=== PATIENT | male | born 1970 | race Caucasian/White ===

== ENCOUNTER 2017-01-28 09:53 | Day surgery (SDC) | payer BC ==
[~2017-01-28 09:53] MED LIST: Lactated Ringers 1,000 ML IV SCH; Lidocaine 1% 2 ML SDV ONE; Lidocaine 1%/Sod Bicarbonate in NS 8.4% 1 ML Syringe IV PRN; Propofol 200 MG/20 ML SDV ONE; Sodium Chloride 0.9% 10 ML Syringe FLUSH PRN
--- NOTE | 2017-01-28 10:36 | PCM.PREANE ---
Preanesthetic Assessment - Anesthesia/Transfusion/Family Hx Anesthesia History: No Prior Anesthesia Family History of Anesthesia Reaction: No Transfusion History: No Prior Transfusion(s) - Review of Systems General: No Symptoms Pulmonary: No Symptoms Cardiovascular: No Symptoms Gastrointestinal: No symptoms Neurological: No Symptoms Other: Reports: None - Physical Assessment NPO Status Date: 01/27/17 NPO Status Time: 00:00 Pulse: 83 O2 Sat by Pulse Oximetry: 97 Respiratory Rate: 14 Blood Pressure: 126/74 Temperature: 36.8 C Height: 1.8 m Weight: 149.685 kg ASA Class: 3 Mental Status: Alert & Oriented x3 Airway Class: Mallampati = 1 Dentition: Reports: Edentulous Thyro-Mental Finger Breadths: 3 Mouth Opening Finger Breadths: 5 ROM/Head Extension: Full Lungs: Clear to auscultation, Normal respiratory effort Cardiovascular: Regular Rate, Regular Rhythm - Lab Values: Labs reviewed - Allergies Allergies/Adverse Reactions: Allergies Allergy/AdvReac Type Severity Reaction Status Date / Time morphine Allergy Swelling Verified 02/11/16 13:05 pollen extracts Allergy Cannot Verified 01/27/17 12:48 Remember tramadol Allergy Cannot Verified 01/27/17 12:48 Remember - Blood Blood Available: No - Anesthesia Plan Beta Elizabeth: Carvedilol (took last night, will take tonight) - Acknowledgements Anesthesia Type Planned: MAC Pt an Appropriate Candidate for the Planned Anesthesia: Yes Alternatives and Risks of Anesthesia Discussed w Pt/Guardian: Yes Pt/Guardian Understands and Agrees with Anesthesia Plan: Yes PreAnesthesia Questionnaire - Past Health History Medical/Surgical History: Denies Medical/Surgical History (except [place] disease history 15 years ago) HEENT History: Reports: None Other HEENT History: dentures Cardiovascular History: Reports: Hypertension Respiratory History: Reports: Asthma, Sleep apnea Gastrointestinal History: Reports: GERD, Helicobacter pylori, Other (see below) Other Gastrointestinal History: abdominal pain, dysphagia, epigastric pain, nausea/vomiting Genitourinary History: Reports: None INTERVENTIONAL NEURORADIOLOGIST History: Reports: None Musculoskeletal History: Reports: None Neurological History: Reports: Migraines Psychiatric History: Reports: None Endocrine/Metabolic History: Reports: Obesity/BMI 30+ Hematologic History: Reports: Anemia Immunologic History: Reports: None Oncologic (Cancer) History: Reports: None Dermatologic History: Reports: None - Infectious Disease History Infectious Disease History: Reports: Other (see below) Other Infectious Disease History: lyme disease - Past Surgical History Head Surgeries/Procedures: Reports: None HEENT Surgical History: Reports: Oral surgery - SUBSTANCE USE Smoking Status *Q: Current Every Day Smoker Tobacco Use Within Last Twelve Months: Cigarettes Recreational Drug Use History: No - HOME MEDS Home Medications: Home Meds Aspirin [Claudia Chewable] 81 mg PO DAILY 02/11/16 [History] SUMAtriptan Succinate [Imitrex] 100 mg PO DAILY PRN 02/11/16 [History] Carvedilol [Carvedilol] 25 mg PO DAILY 01/27/17 [History] Cholecalciferol (Vitamin D3) [Vitamin D3] 1,000 unit PO DAILY 01/27/17 [History] Garlic 1 tab PO DAILY 01/27/17 [History] Lisinopril 40 mg PO DAILY 01/27/17 [History] Omeprazole Magnesium [Prilosec Otc] 20 mg PO DAILY 01/27/17 [History] Ondansetron [Ondansetron ODT] 4 mg PO TID PRN 01/27/17 [History] - CURRENT (IN HOUSE) MEDS Current Meds: Current Medications Lactated Ringer's (Ringers, Lactated) 1,000 mls @ 125 mls/hr IV ASDIRECTED CLAUDE Lidocaine/Sodium Bicarbonate (Buffered Lidocaine 1% In Ns 8.4%) 0.25 ml IV ONETIME PRN PRN Reason: Prior to IV Start Sodium Chloride (Saline Flush) 10 ml FLUSH ASDIRECTED PRN PRN Reason: Keep Vein Open Discontinued Medications Lidocaine HCl (Lidocaine 1%) Confirm Administered Dose 6 ml .ROUTE .STK-MED ONE Stop: 01/28/17 07:51 Propofol (Diprivan 20 Ml) Confirm Administered Dose 200 mg .ROUTE .STK-MED ONE Stop: 01/28/17 07:51 Preanesthetic Assessment - PHYSICAL ASSESSMENT Height: 1.8 m Weight: 149.685 kg - ALLERGIES Allergies/Adverse Reactions: Allergies Allergy/AdvReac Type Severity Reaction Status Date / Time morphine Allergy Swelling Verified 02/11/16 13:05 pollen extracts Allergy Cannot Verified 01/27/17 12:48 Remember tramadol Allergy Cannot Verified 01/27/17 12:48 Remember
--- NOTE | 2017-01-28 11:32 | PCM.SN ---
- Free Text/Narrative Note: After the preanesthetic record was signed, the patient informed the anesthesia provider that he uses cannabis on a daily bases to treat the nausea and vomiting he has been experiencing which is leading to have the EGD at the hospital. He informed me that without daily ingesting the cannabis, he has nausea and vomiting. I agreed to proceed with the scheduled procedure and anesthetic, and thanked him for being honest with his drug use history.
--- NOTE | 2017-01-28 12:17 | PCM48HPAN ---
Post Anesthesia Note - EVALUATION WITHIN 48HRS OF ANESTHETIC Vital Signs in Normal Range: Yes Patient Participated in Evaluation: Yes Respiratory Function Stable: Yes Airway Patent: Yes Cardiovascular Function Stable: Yes Hydration Status Stable: Yes Pain Control Satisfactory: Yes Nausea and Vomiting Control Satisfactory: Yes Mental Status Recovered: Yes
--- NOTE | 2017-01-28 12:18 | PCM.OPNOTE ---
- General Post-Op/Procedure Note Date of Surgery/Procedure: 01/28/17 Operative Procedure(s): EGD with biopsies of the antrum, and prox and distal esophagus using cold forceps Findings: normal EGD Pre Op Diagnosis: GERD, Dysphagia, + H. Pylori Post-Op Diagnosis: normal EGD Anesthesia Technique: MAC, Moderate sedation Primary Surgeon: Darin Sanchez Pathology: antral biopsies, as well as proximal and distal esophageal biopsies EBL in mLs: 0 Complications: None Condition: Good Free Text/Narrative:: After adequate IV sedation and analgesia was obtained the patient was placed on his left side. Through a bite-block lubricated upper endoscope was inserted into the esophagus and advanced to the stomach without difficulty. Air was given here I entered the first and second parts of the duodenum, which were endoscopically normal with no mass lesions or inflammatory changes seen. There were no ulcers. The antrum was unremarkable as well with no erosions or ulcers. I took two random biopsies of the antrum with cold forceps for histologic review. In the retroflexed view there was no hiatal hernia. The fundus and cardiac regions were normal. The body of the stomach was unremarkable with normal folds and no ulcers. The scope was withdrawn to the GE junction, which was normal. I took two random biopsies of this area for review. The body of the esophagus was unremarkable and within the proximal esophagus I took two random biopsies because of his history of dysphagia. [employer] Drawer photographs were taken for the patient and for the record. There were no procedural complications.
[2017-01-28] MEDS ORDERED: Propofol 200 MG/20 ML SDV ONE (12:20)
[2017-01-28 12:21] VITALS: BP 132/86
== END 2017-01-28 12:31 | disposition home or self-care (01) ==
LOC: JD.SDS 09:53
PROVIDERS: ATTEND Surgery
PROC: 0DB48ZX Excision of Esophagogastric Junction, Via Natural or Artificial Opening Endoscopic, Diagnostic (ICD-10-PCS; principal; 2017-01-28)
DX: K22.70 Barrett's esophagus without dysplasia (principal); J45.909 Unspecified asthma, uncomplicated; I10 Essential (primary) hypertension; K21.9 Gastro-esophageal reflux disease without esophagitis; I16.9 Hypertensive crisis, unspecified; E66.01 Morbid (severe) obesity due to excess calories; G47.33 Obstructive sleep apnea (adult) (pediatric); F17.210 Nicotine dependence, cigarettes, uncomplicated; Z88.5 Allergy status to narcotic agent; Z88.6 Allergy status to analgesic agent; Z91.048 Other nonmedicinal substance allergy status; Z79.82 Long term (current) use of aspirin; Z79.899 Other long term (current) drug therapy; Z86.19 Personal history of other infectious and parasitic diseases; Z68.42 Body mass index [BMI] 45.0-49.9, adult
CPT/HCPCS: 43239; 88305; J7120; J2704

== ENCOUNTER 2017-04-10 08:26 | Emergency (ER) | payer BC ==
[2017-04-10] MEDS ORDERED: Alum Hydrox/Mag Hydrox/Simeth 30 ML, Lidocaine 2% 15 ML PO ONE ×2 (08:39)
[2017-04-10] MEDS ORDERED: Ondansetron 4 MG/2 ML SDV IVPUSH ONE (08:39)
[2017-04-10] MEDS ORDERED: Pantoprazole 40 MG Vial IVPUSH ONE (08:39)
--- NOTE | 2017-04-10 08:43 | EDM.PDOC ---
ED HPI GENERAL MEDICAL PROBLEM - General Chief Complaint: Respiratory Problem Stated Complaint: SHORTNESS OF BREATH Time Seen by Provider: 04/10/17 08:28 - History of Present Illness INITIAL COMMENTS - FREE TEXT/NARRATIVE: 46-year-old male presents emergency room with abdominal pain and breathing difficulties. This is been going on for the last 4-5 days progressively getting worse. Patient has been unable to keep his omeprazole down secondary to burning in his stomach and throat that causes shortness of breath and a severe cough. The patient has had some vomiting. He has not vomited any blood. At times he is a hard time catching his breath when the pain is at its most severe pain he describes a numbness and discomfort in his right arm and at times has difficulty moving his other arm. No lower extremity weakness. The patient has been unable to keep any fluids or food down for the last 3 days and it was decreased before this. Right Chest Pain Score (Numeric/FACES): 8 - Related Data Allergies Allergy/AdvReac Type Severity Reaction Status Date / Time morphine Allergy Swelling Verified 04/10/17 08:34 pollen extracts Allergy Cannot Verified 04/10/17 08:34 Remember tramadol Allergy Cannot Verified 04/10/17 08:34 Remember Home Meds: Home Meds Aspirin [Claudia Chewable Aspirin] 81 mg PO DAILY 02/11/16 [History] SUMAtriptan Succinate [Imitrex] 100 mg PO DAILY PRN 02/11/16 [History] Carvedilol 25 mg PO DAILY 01/27/17 [History] Cholecalciferol (Vitamin D3) [Vitamin D3] 1,000 unit PO DAILY 01/27/17 [History] Garlic 1 tab PO DAILY 01/27/17 [History] Lisinopril 40 mg PO DAILY 01/27/17 [History] Omeprazole Magnesium [Prilosec Otc] 20 mg PO DAILY 01/27/17 [History] Ondansetron [Ondansetron ODT] 4 mg PO TID PRN 01/27/17 [History] Famotidine [Pepcid] 20 mg PO BID #60 tablet 04/10/17 [Rx] Ondansetron [Zofran ODT] 4 mg PO Q4H PRN #10 tab.dis 04/10/17 [Rx] Sucralfate [Carafate] 1 gm PO QIDACANDBED #60 tablet 04/10/17 [Rx] Past Medical History - Past Health History Medical/Surgical History: Denies Medical/Surgical History (except [place] disease history 15 years ago) HEENT History: Reports: None Other HEENT History: dentures Cardiovascular History: Reports: Hypertension Respiratory History: Reports: Asthma, Sleep Apnea Gastrointestinal History: Reports: GERD, Helicobacter Pylori, Other (See Below) Other Gastrointestinal History: abdominal pain, dysphagia, epigastric pain, nausea/vomiting Genitourinary History: Reports: None DIRECTOR PHARMACOLOGY History: Reports: None Musculoskeletal History: Reports: None Neurological History: Reports: Migraines Psychiatric History: Reports: None Endocrine/Metabolic History: Reports: Obesity/BMI 30+ Hematologic History: Reports: Anemia Immunologic History: Reports: None Oncologic (Cancer) History: Reports: None Dermatologic History: Reports: None - Infectious Disease History Infectious Disease History: Reports: Other (See Below) Other Infectious Disease History: lyme disease - Past Surgical History HEENT Surgical History: Reports: Oral Surgery Social & Family History - Family History Family Medical History: Noncontributory - Tobacco Use Smoking Status *Q: Current Every Day Smoker Years of Tobacco use: 20 Packs/Tins Daily: 0.7 - Recreational Drug Use Recreational Drug Use: No ED ROS GENERAL - Review of Systems Review Of Systems: See Below Constitutional: Reports: Weakness, Fatigue, Decreased Appetite. Denies: No Symptoms, Fever, Chills HEENT: Reports: No Symptoms Respiratory: Reports: Shortness of Breath, Cough. Denies: Wheezing, Pleuritic Chest Pain, Sputum Cardiovascular: Reports: Chest Pain (Burning sensation in the middle of his chest with some radiation) Endocrine: Reports: No Symptoms GI/Abdominal: Reports: Abdominal Pain, Nausea, Vomiting. Denies: Constipation, Diarrhea, Hematemesis, Hematochezia : Reports: No Symptoms Musculoskeletal: Reports: No Symptoms Skin: Reports: No Symptoms Neurological: Reports: No Symptoms ED EXAM, GENERAL - Physical Exam Exam: See Below Exam Limited By: No Limitations General Appearance: Alert, Mild Distress (From frequent attempts to vomit and discomfort) Head: Atraumatic, Normocephalic Neck: Normal Inspection, Supple, Non-Tender, Full Range of Motion Respiratory/Chest: No Respiratory Distress, Lungs Clear, Normal Breath Sounds Cardiovascular: Regular Rate, Rhythm, No Edema, No Murmur, Tachycardia GI/Abdominal: Normal Bowel Sounds, Soft, Other (Significant epigastric and left upper quadrant discomfort with palpation no rebound or guarding noted patient is obese this limits the exam to some degree) Back Exam: Normal Inspection. No: CVA Tenderness (L), CVA Tenderness (R) Course - Vital Signs Last Recorded V/S: Last Vital Signs Temp 36.8 C 04/10/17 08:30 Pulse 95 04/10/17 09:51 Resp 16 04/10/17 08:30 BP 116/78 04/10/17 09:51 Pulse Ox 99 04/10/17 08:30 - Orders/Labs/Meds Orders: Active Orders 24 hr Category Date Time Status EKG Documentation Completion [RC] STAT Care 04/10/17 08:40 Active Labs: Laboratory Tests 04/10/17 04/10/17 Range/Units 09:08 09:08 WBC 13.75 H (4.23-9.07) K/mm3 RBC 5.44 (4.63-6.08) M/mm3 Hgb 15.9 (13.7-17.5) gm/L Hct 46.7 (40.1-51.0) % MCV 85.8 (79.0-92.2) fl MCH 29.2 (25.7-32.2) pg MCHC 34.0 (32.2-35.5) g/dl RDW Std Deviation 44.0 H (35.1-43.9) fL Plt Count 315 (163-337) K/mm3 MPV 10.5 (9.4-12.3) fl Neutrophils % (Manual) 81 H (40-60) % Band Neutrophils % 1 (0-10) % Lymphocytes % (Manual) 12 L (20-40) % Atypical Lymphs % 0 % Monocytes % (Manual) 3 (2-10) % Eosinophils % (Manual) 2 (0.8-7.0) % Basophils % (Manual) 1 (0.2-1.2) Platelet Estimate Adequate RBC Morph Comment Normal Sodium 138 (136-145) mEq/L Potassium 3.8 (3.5-5.1) mEq/L Chloride 104 (98-107) mEq/L Carbon Dioxide 20 L (21-32) mEq/L Anion Gap 17.8 H (5-15) BUN 10 (7-18) mg/dL Creatinine 1.0 (0.7-1.3) mg/dL Est Cr Clr Drug Dosing 127.61 mL/min Estimated GFR (MDRD) > 60 (>60) mL/min BUN/Creatinine Ratio 10.0 L (14-18) Glucose 163 H (74-106) mg/dL Calcium 9.1 (8.5-10.1) mg/dL Total Bilirubin 0.8 (0.2-1.0) mg/dL AST 15 (15-37) U/L ALT 34 (16-63) U/L Alkaline Phosphatase 88 (46-116) U/L Troponin I < 0.017 (0.00-0.056) ng/mL Total Protein 7.8 (6.4-8.2) g/dl Albumin 3.9 (3.4-5.0) g/dl Globulin 3.9 gm/dL Albumin/Globulin Ratio 1.0 (1-2) Lipase 173 (73-393) U/L Meds: Medications Discontinued Medications Generic Name Dose Route Start Last Admin Trade Name Robyq PRN Reason Stop Dose Admin Al Hydroxide/Mg Hydroxide 30 0 ml 04/10/17 08:39 04/10/17 09:07 ml/ Lidocaine HCl 15 ml PO 04/10/17 08:40 45 ml ONETIME ONE Administration Lactated Ringer's Confirm 04/10/17 08:52 04/10/17 09:06 Ringers, Lactated Administered 04/10/17 08:53 Not Given Dose 1,000 mls @ as directed .ROUTE .STK-MED ONE Lactated Ringer's Confirm 04/10/17 08:54 04/10/17 09:06 Ringers, Lactated Administered 04/10/17 08:55 Not Given Dose 1,000 mls @ as directed .ROUTE .STK-MED ONE Lactated Ringer's 1,000 mls @ 999 mls/hr 04/10/17 09:05 04/10/17 08:55 Ringers, Lactated IV 04/10/17 10:05 999 mls/hr .BOLUS ONE Administration Ondansetron HCl 4 mg 04/10/17 08:39 04/10/17 08:55 Zofran IVPUSH 04/10/17 08:40 4 mg ONETIME ONE Administration Pantoprazole Sodium 40 mg 04/10/17 08:39 04/10/17 08:56 Protonix Iv IVPUSH 04/10/17 08:40 40 mg ONETIME ONE Administration Sucralfate 1 gm 04/10/17 09:30 04/10/17 09:37 Carafate PO 04/10/17 09:31 1 gm ONETIME ONE Administration - Re-Assessments/Exams Free Text/Narrative Re-Assessment/Exam: 04/10/17 09:29 Labs and x-ray ordered as well as an EKG which does not show any acute changes chest x-ray is unrevealing no free air diaphragm labs pending the patient had good control his nausea with Zofran this was followed up with the GI cocktail and he had significant relief after this. He feels much better he is breathing much easier. He'll be given dose of Carafate 04/10/17 10:06 Patient has had further improvement after the Carafate. Patient states he is 100 % back to normal. Labs reviewed white count is up a little bit no bandemia. Chemistries fairly normal troponin negative chest x-ray normal no free air in the diaphragm. Patient be discharged to continue his omeprazole once daily was started on Pepcid and Carafate and have him followup in the clinic. Departure - Departure Time of Disposition: 10:08 Disposition: Home, Self-Care 01 Clinical Impression: Gastroesophageal reflux disease Clinical Impression: (Ruled Out): Congestive heart failure - Discharge Information Forms: ED Department Discharge Additional Instructions: return to the emergency room with any questions or problems. You have been started on 3 medications and you should continue your Prilosec. He was started on Carafate 1 g before each meal breakfast lunch and supper and at bedtime. Take your other medications one hour before or 2 hours after using the Carafate. You have been started on Pepcid 20 mg twice daily. You've been started on Zofran. This is for nausea and vomiting. Use only as needed. Follow up in the clinic on Thursday or Thursday of next week. - My Orders Last 24 Hours: My Active Orders 04/10/17 08:40 EKG Documentation Completion [RC] STAT - Assessment/Plan Last 24 Hours: My Active Orders 04/10/17 08:40 EKG Documentation Completion [RC] STAT
[2017-04-10] MEDS ORDERED: Lactated Ringers 1,000 ML ONE ×2 (08:52→08:54)
--- NOTE | 2017-04-10 09:02 | CR ---
Chest: Portable view of the chest was obtained. Comparison: Previous chest x-ray of 02/11/16. Heart size and mediastinum are within normal limits for portable technique. Lungs are clear. Bony structures are grossly intact. Impression: 1. Nothing acute is identified on portable chest x-ray. Diagnostic code #1
[2017-04-10] MEDS ORDERED: Lactated Ringers 1,000 ML IV ONE (09:05)
[2017-04-10] MEDS ORDERED: Sucralfate Suspension 1 GM/10 ML Cup PO ONE (09:30)
[2017-04-10 09:52] VITALS: BP 116/78
== END 2017-04-10 10:21 | disposition home or self-care (01) ==
LOC: JD.ED 08:26
DX: K21.9 Gastro-esophageal reflux disease without esophagitis (principal); I10 Essential (primary) hypertension; J45.909 Unspecified asthma, uncomplicated; F17.210 Nicotine dependence, cigarettes, uncomplicated; G43.909 Migraine, unspecified, not intractable, without status migrainosus; E66.9 Obesity, unspecified; Z88.5 Allergy status to narcotic agent; Z79.82 Long term (current) use of aspirin; Z79.899 Other long term (current) drug therapy; Z86.2 Personal history of diseases of the blood and blood-forming organs and certain disorders involving the immune mechanism
CPT/HCPCS: 36415; 71010; 80053; 83690; 84484; 85025; 93005; 96361; 96374; 96375; 99285; A9270; C9113; J2405; J7120; 99284

== ENCOUNTER 2018-05-08 11:57 | Emergency (ER) | payer SELFPAY ==
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
[2018-05-08] MEDS ORDERED: Sodium Chloride 0.9% 1,000 ML IV ONE (13:22)
[2018-05-08] MEDS ORDERED: Ondansetron 4 MG/2 ML SDV IVPUSH ONE (13:22)
[2018-05-08] MEDS ORDERED: Ketorolac 30 MG/ML SDV IVPUSH ONE (13:22)
[2018-05-08 16:17] VITALS: BP 165/82
== END 2018-05-08 16:15 | disposition home or self-care (01) ==
LOC: JD.ED 11:57 → EEVIPCON 11:57 → JD.ED 16:15
DX: G44.209 Tension-type headache, unspecified, not intractable (principal); I10 Essential (primary) hypertension; J45.909 Unspecified asthma, uncomplicated; K21.9 Gastro-esophageal reflux disease without esophagitis; F17.210 Nicotine dependence, cigarettes, uncomplicated; Z88.5 Allergy status to narcotic agent; Z88.8 Allergy status to other drugs, medicaments and biological substances; Z79.899 Other long term (current) drug therapy; Z79.82 Long term (current) use of aspirin
CPT/HCPCS: 36415; 80053; 80306; 81001; 85025; 86677; 96361; 96374; 96375; 99284; J1885; J2405; J7040

== ENCOUNTER 2019-12-20 19:57 | Emergency (ER) | payer BC, OTHER ==
[2019-12-20] MEDS ORDERED: Ketorolac 30 MG/ML SDV IVPUSH ONE (20:38)
[2019-12-20] MEDS ORDERED: Ondansetron 4 MG/2 ML SDV IVPUSH ONE (20:38)
[2019-12-20] MEDS ORDERED: Sodium Chloride 0.9% 10 ML Syringe FLUSH PRN (20:39)
[2019-12-20] MEDS ORDERED: Metoprolol Tartrate 5 MG/5 ML SDV IVPUSH ONE (20:39)
--- NOTE | 2019-12-20 20:43 | EDM.PDOC ---
ED HPI GENERAL MEDICAL PROBLEM - General Chief Complaint: Headache Stated Complaint: DIZZY HEADACHE Time Seen by Provider: 12/20/19 20:19 Source of Information: Reports: Patient History Limitations: Reports: No Limitations - History of Present Illness INITIAL COMMENTS - FREE TEXT/NARRATIVE: Patient is a 49-year-old male who presents with complaints of headache, orthopnea, and lower extremity edema. Patient states he has had a headache for about the last month, however today it is worse. He describes the pain as a general pressure like somebody hit him in the head. Over the last week he has been having worsening lower extremity edema that does not resolve with elevating his extremities. He also complains of shortness of breath when lying flat. Patient states that he has had elevated blood pressures in the past and was prescribed lisinopril. He states that he ran out of these medications a couple months back and that his blood pressures been slowly increasing. Denies a history of congestive heart failure. Denies a history of migraines. Frontal Headache Pain Score (Numeric/FACES): 8 - Related Data Allergies Allergy/AdvReac Type Severity Reaction Status Date / Time morphine Allergy Swelling Verified 12/20/19 20:11 pollen extracts Allergy Cannot Verified 12/20/19 20:11 Remember tramadol Allergy Cannot Verified 12/20/19 20:11 Remember Home Meds: Home Meds . [No Known Home Meds] 12/20/19 [History] Past Medical History - Past Health History Medical/Surgical History: Denies Medical/Surgical History HEENT History: Reports: None Other HEENT History: dentures Cardiovascular History: Reports: Hypertension Respiratory History: Reports: Asthma, Sleep Apnea Gastrointestinal History: Reports: GERD, Helicobacter Pylori Other Gastrointestinal History: abdominal pain, dysphagia, epigastric pain, nausea/vomiting Genitourinary History: Reports: None CTO History: Reports: None Musculoskeletal History: Reports: None Neurological History: Reports: Migraines Psychiatric History: Reports: None Endocrine/Metabolic History: Reports: Obesity/BMI 30+ Hematologic History: Reports: Anemia Immunologic History: Reports: None Oncologic (Cancer) History: Reports: None Dermatologic History: Reports: None - Infectious Disease History Infectious Disease History: Reports: Other (See Below) Other Infectious Disease History: lyme disease - Past Surgical History Head Surgeries/Procedures: Reports: None HEENT Surgical History: Reports: Oral Surgery Social & Family History - Family History Family Medical History: Noncontributory - Tobacco Use Smoking Status *Q: Former Smoker Used Tobacco, but Quit: Yes Month/Year Tobacco Last Used: 2019 - Caffeine Use Caffeine Use: Reports: None - Recreational Drug Use Recreational Drug Use: No ED ROS GENERAL - Review of Systems Review Of Systems: See Below Constitutional: Reports: No Symptoms HEENT: Reports: No Symptoms Respiratory: Reports: Shortness of Breath Cardiovascular: Reports: Edema, Orthopnea. Denies: Chest Pain, Dyspnea on Exertion, Palpitations Endocrine: Reports: No Symptoms GI/Abdominal: Reports: No Symptoms : Reports: No Symptoms Musculoskeletal: Reports: No Symptoms Skin: Reports: No Symptoms Neurological: Reports: Headache Psychiatric: Reports: No Symptoms Hematologic/Lymphatic: Reports: No Symptoms Immunologic: Reports: No Symptoms - Physical Exam Exam: See Below General Appearance: Alert, WD/WN, Mild Distress Head Exam: Atraumatic, Normocephalic Neck: Normal Inspection, Supple, Non-Tender, Full Range of Motion Respiratory/Chest: No Respiratory Distress, Lungs Clear, No Accessory Muscle Use , Chest Non-Tender, Decreased Breath Sounds (Throughout) Cardiovascular: Normal Peripheral Pulses, Regular Rate, Rhythm, No Gallop, No JVD, No Murmur, No Rub, Other (2+ pitting lower extremity edema bilaterally) GI/Abdominal: Normal Bowel Sounds, Soft, Non-Tender, No Organomegaly, No Distention, No Abnormal Bruit, No Mass Neuro Exam (Abbreviated): Alert, Oriented, CN II-XII Intact, Normal Cognition, Normal Gait, Normal Reflexes, No Motor/Sensory Deficits Psychiatric: Normal Affect, Normal Mood Skin Exam: Warm, Dry, Intact, Normal Color, No Rash EKG INTERPRETATION EKG Date: 12/20/19 Time: 20:48 Rhythm: NSR Rate (Beats/Min): 112 [place]: LAD-Left [place] Deviation (Borderline) P-Wave: Enlarged (Left atrial enlargement) QRS: Normal ST-T: Normal QT: Prolonged EKG Interpretation Comments: Sinus tachycardia Left atrial enlargement No AVB No ischemic changes Late transition no LAD/RAD No LVH/RVH No IVCD S QT prolonged EKG interpreted by Dr. Castro MD. Course - Vital Signs Last Recorded V/S: Last Vital Signs Temp 97.8 F 12/20/19 22:35 Pulse 109 H 12/20/19 22:35 Resp 18 12/20/19 22:35 BP 167/126 H 12/20/19 22:35 Pulse Ox 97 12/20/19 22:35 - Orders/Labs/Meds Orders: Active Orders 24 hr Category Date Time Status EKG Documentation Completion [RC] STAT Care 12/20/19 20:38 Active Peripheral IV Care [RC] . DIRECTED Care 12/20/19 20:39 Active Peripheral IV Insertion Adult [OM.PC] Stat Oth 12/20/19 20:37 Ordered Labs: Laboratory Tests 12/20/19 12/20/19 12/20/19 Range/Units 20:25 20:25 20:25 WBC 16.73 H (4.23-9.07) K/mm3 RBC 5.72 (4.63-6.08) M/mm3 Hgb 16.5 (13.7-17.5) gm/dl Hct 47.8 (40.1-51.0) % MCV 83.6 (79.0-92.2) fl MCH 28.8 (25.7-32.2) pg MCHC 34.5 (32.2-35.5) g/dl RDW Std Deviation 43.0 (35.1-43.9) fL Plt Count 196 D (163-337) K/mm3 MPV 11.9 (9.4-12.3) fl Neut % (Auto) 86.1 H (34.0-67.9) % Lymph % (Auto) 8.4 L (21.8-53.1) % [place] % (Auto) 4.8 L (5.3-12.2) % Eos % (Auto) 0.2 L (0.8-7.0) Baso % (Auto) 0.2 (0.1-1.2) % Neut # (Auto) 14.40 H (1.78-5.38) K/mm3 Lymph # (Auto) 1.40 (1.32-3.57) K/mm3 [place] # (Auto) 0.81 (0.30-0.82) K/mm3 Eos # (Auto) 0.03 L (0.04-0.54) K/mm3 Baso # (Auto) 0.04 (0.01-0.08) K/mm3 Manual Slide Review Abnormal smear Sodium 134 L (136-145) mEq/L Potassium 3.5 (3.5-5.1) mEq/L Chloride 97 L (98-107) mEq/L Carbon Dioxide 30 (21-32) mEq/L Anion Gap 10.5 (5-15) BUN 21 H (7-18) mg/dL Creatinine 1.4 H (0.7-1.3) mg/dL Est Cr Clr Drug Dosing 69.47 mL/min Estimated GFR (MDRD) 54 (>60) mL/min BUN/Creatinine Ratio 15.0 (14-18) Glucose 307 H (74-106) mg/dL Calcium 8.7 (8.5-10.1) mg/dL Total Bilirubin 0.4 (0.2-1.0) mg/dL AST 14 L (15-37) U/L ALT 26 (16-63) U/L Alkaline Phosphatase 147 H (46-116) U/L Troponin I 0.107 H* (0.00-0.056) ng/mL NT-Pro-B Natriuret Pep 4775 H (0-125) pg/mL Total Protein 6.4 (6.4-8.2) g/dl Albumin 2.5 L (3.4-5.0) g/dl Globulin 3.9 gm/dL Albumin/Globulin Ratio 0.6 L (1-2) Meds: Medications Discontinued Medications Generic Name Dose Route Start Last Admin Trade Name Freq PRN Reason Stop Dose Admin Furosemide 40 mg 12/20/19 21:36 12/20/19 21:42 Lasix IVPUSH 12/20/19 21:37 40 mg NOW ONE Administration Ketorolac Tromethamine 30 mg 12/20/19 20:38 12/20/19 20:46 Toradol IVPUSH 12/20/19 20:39 30 mg ONETIME ONE Administration Metoprolol Tartrate 5 mg 12/20/19 20:39 12/20/19 20:46 Lopressor IVPUSH 12/20/19 20:40 2.5 mg ONETIME ONE Administration Ondansetron HCl 4 mg 12/20/19 20:38 12/20/19 20:46 Zofran IVPUSH 12/20/19 20:39 4 mg ONETIME ONE Administration Sodium Chloride 10 ml 12/20/19 20:39 12/20/19 20:52 Saline Flush FLUSH 10 ml ASDIRECTED PRN Administration Keep Vein Open - Re-Assessments/Exams Free Text/Narrative Re-Assessment/Exam: 12/20/19 21:02 On triage, patient's blood pressure was significantly elevated at 210/136. Did come down to around 200 systolic on recheck. Heart rate is 110-120 sinus rhythm. Is definite possibly that patient's headache is due to his elevated blood pressure. Also concerned that he may have heart failure due to his lower extremity edema and shortness of breath with laying flat. Ordered CBC, CMP, BNP , troponin, EKG, 2 view chest x-ray as well as a head CT. We will give him Toradol IV, Zofran for nausea, and a dose of IV metoprolol. 12/20/19 2135 Patient's hematology was significant for WBC of 16.73, potassium 134, BUN 21, creatinine 1.4, glucose 307, alk phos 147, troponin 0 0.107, BNP 4775. Chest x- ray did show fairly significant cardiomegaly as well as a mild amount of pulmonary edema. I feel patient will ultimately be best served by seeing a financial specialist as these are new symptoms for him. I have ordered Lasix 40 mg IV. I will contact [facility] to speak with a financial specialist regarding a possible transfer of care. 12/20/19 22:20 Spoke with financial specialist at [facility]. He accepted the patient for a transfer as a direct admission to the telemetry floor. Patient will be transferred via ground ambulance. Departure - Departure Time of Disposition: 22:20 Disposition: DC/Tfer to Acute Hospital 02 Condition: Fair Clinical Impression: Cardiomyopathy Qualifiers: Cardiomyopathy type: unspecified Qualified Code(s): I42.9 - Cardiomyopathy, unspecified Heart failure Qualifiers: Heart failure type: unspecified Heart failure chronicity: unspecified Qualified Code(s): I50.9 - Heart failure, unspecified - Discharge Information *PRESCRIPTION DRUG MONITORING PROGRAM REVIEWED*: No *COPY OF PRESCRIPTION DRUG MONITORING REPORT IN PATIENT ARMAND: No Referrals: PCP,None [Primary Care Provider] - Forms: ED Department Discharge Sepsis Event Note - Evaluation Sepsis Screening Result: No Definite Risk - Focused Exam Date Exam was Performed: 12/21/19 Time Exam was Performed: 11:23 - My Orders Last 24 Hours: My Active Orders 12/20/19 20:37 Peripheral IV Insertion Adult [OM.PC] Stat 12/20/19 20:38 EKG Documentation Completion [RC] STAT 12/20/19 20:39 Peripheral IV Care [RC] . DIRECTED - Assessment/Plan Last 24 Hours: My Active Orders 12/20/19 20:37 Peripheral IV Insertion Adult [OM.PC] Stat 12/20/19 20:38 EKG Documentation Completion [RC] STAT 12/20/19 20:39 Peripheral IV Care [RC] . DIRECTED
[2019-12-20] MEDS ORDERED: Furosemide 40 MG/4 ML VIAL IVPUSH ONE (21:36)
[2019-12-20 22:59] VITALS: BP 167/126; PULSE 109
--- NOTE | 2019-12-21 07:48 | CR ---
Chest: Two views of the chest were obtained. Comparison: Prior chest x-ray of 10/04/18. Heart is enlarged. Tortuous thoracic aorta is seen. Pulmonary vessels are mildly congested. Lungs otherwise are clear. Bony structures appear within normal limits for the patient's age. Impression: 1. Cardiomegaly and mild pulmonary vascular congestion. Diagnostic code #3 This report was dictated in [place] Standard Time
--- NOTE | 2019-12-21 07:48 | CT ---
Head CT Technique: Multiple axial sections through the brain were obtained. Intravenous contrast was not utilized. Comparison: Prior head CT study of 02/10/18. Findings: Ventricles along with basal cisterns and sulci over the convexities are within normal limits for the patient's age. No abnormal parenchymal densities are seen. No evidence of intracranial hemorrhage. No midline shift or mass-effect is identified. Bone window settings were reviewed. Visualized paranasal sinuses and mastoid sinuses show nothing acute. No acute calvarial abnormality is identified. Impression: 1. Nothing acute is appreciated on noncontrast head CT exam. Diagnostic code #1 This report was dictated in [place] Standard Time I agree with preliminary report from [facility], finalized on 12/20/19, 10:22 PM Central Time
== END 2019-12-20 22:50 ==
LOC: JD.ED 19:57
DX: I11.0 Hypertensive heart disease with heart failure (principal); I50.9 Heart failure, unspecified; I42.9 Cardiomyopathy, unspecified; E66.9 Obesity, unspecified; Z68.41 Body mass index [BMI] 40.0-44.9, adult; Z88.5 Allergy status to narcotic agent; Z91.09 Other allergy status, other than to drugs and biological substances; Z87.891 Personal history of nicotine dependence
CPT/HCPCS: 36415; 70450; 71046; 80053; 83880; 84484; 85025; 93005; 96374; 96375; 99285; J1885; J1940; J2405; J3490; 93010

== ENCOUNTER 2020-01-03 08:29 | Emergency (ER) | payer OTHER ==
--- NOTE | 2020-01-03 09:25 | EDM.PDOC ---
ED HPI GENERAL MEDICAL PROBLEM - General Chief Complaint: Cardiovascular Problem Stated Complaint: HIGH BP Time Seen by Provider: 01/03/20 09:08 Source of Information: Reports: Patient History Limitations: Reports: No Limitations - History of Present Illness INITIAL COMMENTS - FREE TEXT/NARRATIVE: The patient presents from [facility] for high blood pressure. He saw Kristan Sears and his blood pressure was 224/146. He had a slight headache then. He was seen here December 20 and sent to [facility] in [place] for hypertension urgency and cardiomyopathy. He was in there a few days and had to leave against medical advice. He was unable to get his blood pressure meds then. He was on a beta abhay and lisinopril. He has no headache now. He has no chest pain or shortness of breath. He has no fever, chills, cough, abdominal pain, nausea or vomiting. He has no swelling in his legs now. Onset: Gradual Duration: Week(s): Severity: Mild Improves with: Reports: None Worsens with: Reports: None Associated Symptoms: Reports: No Other Symptoms - Related Data Allergies Allergy/AdvReac Type Severity Reaction Status Date / Time morphine Allergy Swelling Verified 01/03/20 09:07 pollen extracts Allergy Cannot Verified 01/03/20 09:07 Remember tramadol Allergy Cannot Verified 01/03/20 09:07 Remember Home Meds: Home Meds Lisinopril [Zestril] 40 mg PO DAILY #30 tablet 01/03/20 [Rx] Metoprolol Tartrate [Lopressor] 50 mg PO Q12HR #60 tab 01/03/20 [Rx] Past Medical History - Past Health History Medical/Surgical History: Denies Medical/Surgical History HEENT History: Reports: None Other HEENT History: dentures Cardiovascular History: Reports: Hypertension Respiratory History: Reports: Asthma, Sleep Apnea Gastrointestinal History: Reports: GERD, Helicobacter Pylori Other Gastrointestinal History: abdominal pain, dysphagia, epigastric pain, nausea/vomiting Genitourinary History: Reports: None INGOT HEADER History: Reports: None Musculoskeletal History: Reports: None Neurological History: Reports: Migraines, Neuropathy, Peripheral Psychiatric History: Reports: None Endocrine/Metabolic History: Reports: Obesity/BMI 30+ Hematologic History: Reports: Anemia Immunologic History: Reports: None Oncologic (Cancer) History: Reports: None Dermatologic History: Reports: None - Infectious Disease History Infectious Disease History: Reports: Chicken Pox, Measles, Mumps, Other (See Below) Other Infectious Disease History: lyme disease - Past Surgical History Head Surgeries/Procedures: Reports: None HEENT Surgical History: Reports: Oral Surgery Social & Family History - Family History Family Medical History: Noncontributory - Tobacco Use Smoking Status *Q: Current Some Day Smoker Years of Tobacco use: 20 Packs/Tins Daily: 0.3 Used Tobacco, but Quit: No - Caffeine Use Caffeine Use: Reports: Tea - Recreational Drug Use Recreational Drug Use: No ED ROS GENERAL - Review of Systems Review Of Systems: See Below Constitutional: Reports: No Symptoms HEENT: Reports: No Symptoms Respiratory: Reports: No Symptoms Cardiovascular: Reports: No Symptoms Endocrine: Reports: No Symptoms GI/Abdominal: Reports: No Symptoms : Reports: No Symptoms ED EXAM, GENERAL - Physical Exam Exam: See Below Exam Limited By: No Limitations General Appearance: Alert, No Apparent Distress Ears: Normal External Exam Nose: Normal Inspection Head: Atraumatic, Normocephalic Neck: Normal Inspection Respiratory/Chest: No Respiratory Distress, Lungs Clear, Normal Breath Sounds Cardiovascular: Regular Rate, Rhythm, No Edema, No Murmur GI/Abdominal: Soft, Non-Tender, No Organomegaly, No Mass Back Exam: Normal Inspection Extremities: Normal Inspection Course - Vital Signs Last Recorded V/S: Last Vital Signs Temp 97.9 F 01/03/20 09:05 Pulse 106 H 01/03/20 09:05 Resp 19 01/03/20 09:05 BP 198/134 H 01/03/20 09:05 Pulse Ox 97 01/03/20 09:05 Departure - Departure Time of Disposition: 09:30 Disposition: Home, Self-Care 01 Condition: Good Clinical Impression: Hypertension Qualifiers: Hypertension type: unspecified secondary hypertension Qualified Code(s): I15.9 - Secondary hypertension, unspecified; I15 - Secondary hypertension Prescriptions: Metoprolol Tartrate [Lopressor] 50 mg PO Q12HR #60 tab Lisinopril [Zestril] 40 mg PO DAILY #30 tablet Referrals: PCP,None [Primary Care Provider] - Ericka Pennington PA-C [Physician Die [facility]aster] - 1 Week Additional Instructions: Take the lisinopril daily. take the metoprolol 2 times per day. Follow up with Batsheva Pennington within a week. Please return if you are worse. Sepsis Event Note - Evaluation Sepsis Screening Result: No Definite Risk - Focused Exam Vital Signs: Vital Signs Temp Pulse Resp BP Pulse Ox 01/03/20 09:05 97.9 F 106 H 19 198/134 H 97 Date Exam was Performed: 01/03/20 Time Exam was Performed: 09:20
[2020-01-03 10:00] VITALS: BP 198/129; PULSE 108
== END 2020-01-03 09:40 | disposition home or self-care (01) ==
LOC: JD.ED 08:29
DX: I15.9 Secondary hypertension, unspecified (principal); F17.210 Nicotine dependence, cigarettes, uncomplicated; E66.9 Obesity, unspecified; Z68.41 Body mass index [BMI] 40.0-44.9, adult; Z79.899 Other long term (current) drug therapy; Z88.5 Allergy status to narcotic agent; Z91.09 Other allergy status, other than to drugs and biological substances
CPT/HCPCS: 99284

== ENCOUNTER 2020-11-12 16:10 | Emergency (ER) | payer BC ==
[2020-11-12] MEDS ORDERED: Furosemide 40 MG/4 ML VIAL IVPUSH ONE (16:16)
[2020-11-12] MEDS ORDERED: Sodium Chloride 0.9% 10 ML Syringe FLUSH PRN (16:17)
--- NOTE | 2020-11-12 16:25 | EDM.PDOC ---
ED HPI GENERAL MEDICAL PROBLEM - General Chief Complaint: Respiratory Problem Stated Complaint: [facility] Time Seen by Provider: 11/12/20 16:10 Source of Information: Reports: EMS History Limitations: Reports: Respiratory Distress (Not able to speak. Severe respiratory distress.) - History of Present Illness INITIAL COMMENTS - FREE TEXT/NARRATIVE: Patient apparently ran out of his medications and was on his way to a pharmacy to pick them up. He was not sure where to go and was lost. He is not from here. He collapsed in the parking lot outside of his vehicle suggest severe asthma disease. Paramedics arrived on scene and found his O2 sats to be in the 50s. He received racemic epinephrine followed by albuterol neb treatment.. He arrives in the ED pallid in the face with mild central cyanosis. Limbs are cool to touch. Pulse oximeter on hands felt to be inaccurate. Placed on his ear. He is on a nonrebreather at 15 L/min. O2 sats improved up into the 90s and 99% once the pulse oximeter was on his ear. Patient clinically is in acute congestive heart failure with diffuse rales throughout all lung jaeger. Given Lasix 60 mg IV stat. Will likely require nitroglycerin drip if he is blood pressure is elevated. Stat ABGs ordered. Stat Chest x-ray ordered. Onset: Unknown/Unsure (Is unable to speak at the time of assessment in the ED due to severe respiratory distress. Patient appears obtunded and likely due to hypercarbia.) Onset Date: 11/12/20 Duration: Other Location: Reports: Chest ([facility] in severe respiratory distress) Quality: Reports: Other Severity: Severe (Respiratory distress) Improves with: Reports: Other (O2 sats have improved with placement of pulse oximeter on his ear as well as with oxygen therapy.) Context: Reports: Other (Tree of asthma/COPD.). Denies: Activity, Exercise, Lifting, Sick Contact, Trauma Associated Symptoms: Reports: Confusion (Orientation not able to speak due to hypoxia and hypercarbia.) - Related Data Allergies Allergy/AdvReac Type Severity Reaction Status Date / Time morphine Allergy Swelling Verified 01/03/20 09:07 pollen extracts Allergy Cannot Verified 01/03/20 09:07 Remember tramadol Allergy Cannot Verified 01/03/20 09:07 Remember Home Meds: Home Meds Metoprolol Tartrate [Lopressor] 50 mg PO Q12HR #60 tab 01/03/20 [Rx] lisinopriL [Zestril] 40 mg PO DAILY #30 tablet 01/03/20 [Rx] Potassium Chloride 20 meq PO DAILY 11/12/20 [History] Torsemide 20 mg PO DAILY 11/12/20 [History] amLODIPine [Norvasc] 5 mg PO DAILY 11/12/20 [History] hydroCHLOROthiazide [Hydrochlorothiazide] 25 mg PO DAILY 11/12/20 [History] Past Medical History - Past Health History Medical/Surgical History: Denies Medical/Surgical History HEENT History: Reports: None Other HEENT History: dentures Cardiovascular History: Reports: Hypertension Respiratory History: Reports: Asthma, Sleep Apnea Gastrointestinal History: Reports: GERD, Helicobacter Pylori Other Gastrointestinal History: abdominal pain, dysphagia, epigastric pain, nausea/vomiting Genitourinary History: Reports: None ORDER BOOKER History: Reports: None Musculoskeletal History: Reports: None Neurological History: Reports: Migraines, Neuropathy, Peripheral Psychiatric History: Reports: None Endocrine/Metabolic History: Reports: Obesity/BMI 30+ Hematologic History: Reports: Anemia Immunologic History: Reports: None Oncologic (Cancer) History: Reports: None Dermatologic History: Reports: None - Infectious Disease History Infectious Disease History: Reports: Chicken Pox, Measles, Mumps, Other (See Below) Other Infectious Disease History: lyme disease - Past Surgical History Head Surgeries/Procedures: Reports: None HEENT Surgical History: Reports: Oral Surgery Social & Family History - Family History Family Medical History: No Pertinent Family History - Caffeine Use Caffeine Use: Reports: Tea ED ROS GENERAL - Review of Systems Review Of Systems: Unable To Obtain Reason Not Obtained: Patient is unable to speak due to severe respiratory distress and ED EXAM, GENERAL - Physical Exam Exam: See Below Exam Limited By: Respiratory Distress (Altered mental status with severe respiratory distress.) General Appearance: Obtunded, Other (Lid in the face central cyanosis very cool extremities. Temperature is 36.4 with a heart rate of in 148 sinus tachycardia on the monitor respiratory it is 36 to 40/min with O2 sats initially 54% on room air as reported by paramedics. O2 sats initially were 80% upon arrival in the ED with the pulse oximeter on his fingers. Once he was placed on his ear lobe pulse oximeter went up to 99%. Initial blood pressure recorded at 264 174 which is likely incorrect due to the severe diastolic elevation. Second blood pressure remains elevated at 261 159 however.) Eye Exam: Bilateral Eye: Normal Inspection (No scleral icterus or blepharal pallor.), PERRL Throat/Mouth: Other (Is beefy red slightly enlarged and dry.) Head: Atraumatic, Normocephalic, Other (Overt signs of any head or facial trauma.) Neck: Other (Ball neck. Unable to identify). No: Carotid Bruit, Lymphadenopathy (L) ( jugular venous pulsations.), Lymphadenopathy (R), Thyromegaly Respiratory/Chest: Respiratory Distress (Severe with just respiratory distress with tachypnea of 36 to 40/min and O2 sats only 54% on EMT assessment initially. 80% in the ED initially with pulse oximeter on his fingers which are quite cool to touch. When placed on his earlobe sats are 99% on 15 L by nonrebreat her.), Rales (Rales throughout all lung jaeger. Assessment of acute pulmonary edema.) Cardiovascular: No Murmur, No Rub (No rub appreciated but obscured by rales throughout all lung jaeger.). No: Normal Peripheral Pulses Peripheral Pulses: 1+: Posterior Tibial (L) (Pulses are difficult to feel in his feet due to severe dependent edema 4+ up past the knees.), Posterior Tibial (R), Dorsalis Pedis (L), Dorsalis Pedis (R), 2+: Carotid (L), Carotid (R) GI/Abdominal: Distended (Pedantic to percussion epigastrium combined with aerophagia.), Other (Morbidly obese. This is diminishes ability to palpate solid organs.) Neurological: Slow to Respond (Barely speak due to severe respiratory distress.) Psychiatric: Normal Affect, Normal Mood Skin Exam: Cool, Cyanosis (Cyanosis initially improved with oxygen therapy) ED RESPIRATORY PROCEDURES - Endotracheal Intubation Time of Intubation: 17:00 ET Intubation Indication: Respiratory Failure Preparation: Suction, Balloon Tested, BVM Set Up, Difficult Airway Equip Airway Assessment: Obese, Large Tongue Pre-Oxygenation: Assisted with BVM Anesthesia Meds: Etomidate (40 mg), Midazolam (4 mg), Succinylcholine (140 mg) Placement: Orotracheal Cords Visualized: Yes Number of Attempts: 1 Confirmed By: CO2 Indicator, Bilateral Breath Sounds (Initially there was decreased breath sounds the left lung field and the ET tube was backed off from 26 cm to 24 cm corner of the right lip.), Chest Xray (Chest x-ray reveals ET tube 1 cm above the lexie.) Tube Secured By: By RT #1 Interpretation EKG Date: 11/12/20 Time: 16:22 Rhythm: Other Rate (Beats/Min): 146 [place]: Normal P-Wave: Enlarged (Left atrial hypertrophy) QRS: Other (Q waves leads V1 and near Q waves V2 suggestive of old anteroseptal myocardial infarction.) ST-T: Other (Delayed R wave progression) QT: Prolonged (Markedly prolonged) EKG Interpretation Comments: Abnormal ECG. Wandering baseline suggests elevation intermittently in the inferior wall but no definite evidence of acute ischemic change appreciated. Q- wave in aVL suggesting possible lateral wall infarct in the past. #2 Interpretation EKG Date: 11/12/20 Time: 18:00 Rhythm: NSR Rate (Beats/Min): 97 (Frequent unifocal focal PVCs) Dor[place]: Normal P-Wave: Enlarged (Left atrial hypertrophy) QRS: Other (Near Q-wave V1 V2 combined with old anteroseptal myocardial infarction with delayed R wave progression.) ST-T: Other (T wave inversion in leads I and aVL with Q-wave aVL consider lateral wall ischemia. T wave inverted V1, V2 and V3 and V6. Nonspecific finding) QT: Prolonged (Markedly prolonged) EKG Interpretation Comments: Abnormal ECG with no acute evidence of myocardial infarction Course - Vital Signs Last Recorded V/S: Last Vital Signs Temp 36.8 C 11/12/20 17:44 Pulse 105 H 11/12/20 18:21 Resp 16 11/12/20 18:02 BP 159/107 H 11/12/20 18:21 Pulse Ox 99 11/12/20 18:21 - Orders/Labs/Meds Orders: Active Orders 24 hr Category Date Time Status Insert Odell Catheter [Insert Urinary Catheter] [OM.PC] Care 11/12/20 16:45 Ordered Q24H Desired Level of Sedation (RASS) [AST] Click to Edit Oth 11/12/20 17:19 Ordered Peripheral IV Insertion Adult [OM.PC] Stat Oth 11/12/20 16:18 Ordered Labs: Laboratory Tests 11/12/20 11/12/20 11/12/20 Range/Units 16:17 16:17 16:17 WBC 19.23 H (4.23-9.07) K/mm3 RBC 5.39 (4.63-6.08) M/mm3 Hgb 15.1 (13.7-17.5) gm/dl Hct 47.5 (40.1-51.0) % MCV 88.1 D (79.0-92.2) fl MCH 28.0 (25.7-32.2) pg MCHC 31.8 L (32.2-35.5) g/dl RDW Std Deviation 46.7 H (35.1-43.9) fL Plt Count 300 D (163-337) K/mm3 MPV 11.7 (9.4-12.3) fl Neut % (Auto) 75.0 H (34.0-67.9) % Lymph % (Auto) 16.0 L (21.8-53.1) % Gordon % (Auto) 7.4 (5.3-12.2) % Eos % (Auto) 0.3 L (0.8-7.0) Baso % (Auto) 0.5 (0.1-1.2) % Neut # (Auto) 14.43 H (1.78-5.38) K/mm3 Lymph # (Auto) 3.07 (1.32-3.57) K/mm3 Gordon # (Auto) 1.43 H (0.30-0.82) K/mm3 Eos # (Auto) 0.06 (0.04-0.54) K/mm3 Baso # (Auto) 0.09 H (0.01-0.08) K/mm3 Manual Slide Review PT 11.9 (9.7-12.0) SECONDS INR 1.11 APTT 30.2 (21.7-31.4) SECONDS Puncture Site ABG pH (7.35-7.45) ABG pCO2 (35.0-45.0) mmHg ABG pO2 (80.0-100.0) mmHg ABG HCO3 (22.0-26.0) meq/L ABG O2 Saturation (96.0-97.0) % ABG Base Excess (-2-2.0) Yonis Test A-a Gradient mmHg O2 Delivery Device Oxygen Flow Rate FiO2 (21.00-100.00) % Tidal Volume cc PEEP cmH20 Sodium 140 (136-145) mEq/L Potassium 3.1 L (3.5-5.1) mEq/L Chloride 101 (98-107) mEq/L Carbon Dioxide 25 (21-32) mEq/L Anion Gap 17.1 H (5-15) BUN 29 H (7-18) mg/dL Creatinine 2.3 H (0.7-1.3) mg/dL Est Cr Clr Drug Dosing TNP Estimated GFR (MDRD) 31 (>60) mL/min BUN/Creatinine Ratio 12.6 L (14-18) Glucose 269 H (74-106) mg/dL Lactic Acid (0.4-2.0) mmol/L Calcium 9.0 (8.5-10.1) mg/dL Magnesium 2.3 (1.8-2.4) mg/dl Total Bilirubin 0.9 (0.2-1.0) mg/dL AST 14 L (15-37) U/L ALT 26 (16-63) U/L Alkaline Phosphatase 129 H (46-116) U/L CK-MB (CK-2) 3.9 H (0-3.6) ng/ml Troponin I 0.202 H* (0.00-0.056) ng/mL C-Reactive Protein 7.0 H* (<1.0) mg/dL NT-Pro-B Natriuret Pep (0-125) pg/mL Total Protein 8.1 (6.4-8.2) g/dl Albumin 3.7 (3.4-5.0) g/dl Globulin 4.4 gm/dL Albumin/Globulin Ratio 0.8 L (1-2) TSH 3rd Generation (0.358-3.74) uIU/mL Urine Color (Yellow) Urine Appearance (Clear) Urine pH (5.0-8.0) Ur Specific [place] (1.005-1.030) Urine Protein (Negative) Urine Glucose (UA) (Negative) Urine Ketones (Negative) Urine Occult Blood (Negative) Urine Nitrite (Negative) Urine Bilirubin (Negative) Urine Urobilinogen (0.2-1.0) Ur Leukocyte Esterase (Negative) Urine RBC (0-5) /hpf Urine WBC (0-5) /hpf Ur Squamous Epith Cells (0-5) /hpf Urine Bacteria (FEW) /hpf Urine Mucus (FEW) /hpf Urine Opiates Screen (EECWDZ=765) Ur Buprenorphine Scrn (CUTOFF=10) Ur Oxycodone Screen (KDK1BR=520) Urine Methadone Screen (RSO0TW=635) Ur Propoxyphene Screen (HFFCZV=100) Ur Barbiturates Screen (OCIXDJ=045) Ur Tricyclics Screen (BZFYVM=328) Ur Phencyclidine Scrn (CUTOFF=25) Ur Amphetamine Screen (AKTHXD=060) U Methamphetamines Scrn (WMNDPK=977) U Benzodiazepines Scrn (JBVGOG=625) U Cocaine Metab Screen (VURJMK=324) U Marijuana (THC) Screen (CUTOFF=50) SARS-CoV-2 RNA (LINDSEY) (NEGATIVE) 11/12/20 11/12/20 11/12/20 Range/Units 16:17 16:18 16:21 WBC (4.23-9.07) K/mm3 RBC (4.63-6.08) M/mm3 Hgb (13.7-17.5) gm/dl Hct (40.1-51.0) % MCV (79.0-92.2) fl MCH (25.7-32.2) pg MCHC (32.2-35.5) g/dl RDW Std Deviation (35.1-43.9) fL Plt Count (163-337) K/mm3 MPV (9.4-12.3) fl Neut % (Auto) (34.0-67.9) % Lymph % (Auto) (21.8-53.1) % Gordon % (Auto) (5.3-12.2) % Eos % (Auto) (0.8-7.0) Baso % (Auto) (0.1-1.2) % Neut # (Auto) (1.78-5.38) K/mm3 Lymph # (Auto) (1.32-3.57) K/mm3 Gordon # (Auto) (0.30-0.82) K/mm3 Eos # (Auto) (0.04-0.54) K/mm3 Baso # (Auto) (0.01-0.08) K/mm3 Manual Slide Review PT (9.7-12.0) SECONDS INR APTT (21.7-31.4) SECONDS Puncture Site Lt radial ABG pH 7.06 L* (7.35-7.45) ABG pCO2 85.3 H* (35.0-45.0) mmHg ABG pO2 76.0 L (80.0-100.0) mmHg ABG HCO3 23.0 (22.0-26.0) meq/L ABG O2 Saturation 85.8 L (96.0-97.0) % ABG Base Excess -10.1 L (-2-2.0) Yonis Test Positive A-a Gradient 531 mmHg O2 Delivery Device Nonrebreather Oxygen Flow Rate 15.0 FiO2 100.00 (21.00-100.00) % Tidal Volume cc PEEP cmH20 Sodium (136-145) mEq/L Potassium (3.5-5.1) mEq/L Chloride (98-107) mEq/L Carbon Dioxide (21-32) mEq/L Anion Gap (5-15) BUN (7-18) mg/dL Creatinine (0.7-1.3) mg/dL Est Cr Clr Drug Dosing Estimated GFR (MDRD) (>60) mL/min BUN/Creatinine Ratio (14-18) Glucose (74-106) mg/dL Lactic Acid (0.4-2.0) mmol/L Calcium (8.5-10.1) mg/dL Magnesium (1.8-2.4) mg/dl Total Bilirubin (0.2-1.0) mg/dL AST (15-37) U/L ALT (16-63) U/L Alkaline Phosphatase (46-116) U/L CK-MB (CK-2) (0-3.6) ng/ml Troponin I (0.00-0.056) ng/mL C-Reactive Protein (<1.0) mg/dL NT-Pro-B Natriuret Pep 15093 H (0-125) pg/mL Total Protein (6.4-8.2) g/dl Albumin (3.4-5.0) g/dl Globulin gm/dL Albumin/Globulin Ratio (1-2) TSH 3rd Generation (0.358-3.74) uIU/mL Urine Color (Yellow) Urine Appearance (Clear) Urine pH (5.0-8.0) Ur Specific [place] (1.005-1.030) Urine Protein (Negative) Urine Glucose (UA) (Negative) Urine Ketones (Negative) Urine Occult Blood (Negative) Urine Nitrite (Negative) Urine Bilirubin (Negative) Urine Urobilinogen (0.2-1.0) Ur Leukocyte Esterase (Negative) Urine RBC (0-5) /hpf Urine WBC (0-5) /hpf Ur Squamous Epith Cells (0-5) /hpf Urine Bacteria (FEW) /hpf Urine Mucus (FEW) /hpf Urine Opiates Screen (UOPWIU=501) Ur Buprenorphine Scrn (CUTOFF=10) Ur Oxycodone Screen (LSB7XL=884) Urine Methadone Screen (TOE0UE=214) Ur Propoxyphene Screen (YITKCA=583) Ur Barbiturates Screen (ODOWWC=484) Ur Tricyclics Screen (NAELKP=007) Ur Phencyclidine Scrn (CUTOFF=25) Ur Amphetamine Screen (DWKRMQ=553) U Methamphetamines Scrn (ZAAATX=721) U Benzodiazepines Scrn (RHOLAE=849) U Cocaine Metab Screen (TUHFCQ=638) U Marijuana (THC) Screen (CUTOFF=50) SARS-CoV-2 RNA (LINDSEY) Negative (NEGATIVE) 11/12/20 11/12/20 11/12/20 Range/Units 16:30 16:30 16:57 WBC (4.23-9.07) K/mm3 RBC (4.63-6.08) M/mm3 Hgb (13.7-17.5) gm/dl Hct (40.1-51.0) % MCV (79.0-92.2) fl MCH (25.7-32.2) pg MCHC (32.2-35.5) g/dl RDW Std Deviation (35.1-43.9) fL Plt Count (163-337) K/mm3 MPV (9.4-12.3) fl Neut % (Auto) (34.0-67.9) % Lymph % (Auto) (21.8-53.1) % Gordon % (Auto) (5.3-12.2) % Eos % (Auto) (0.8-7.0) Baso % (Auto) (0.1-1.2) % Neut # (Auto) (1.78-5.38) K/mm3 Lymph # (Auto) (1.32-3.57) K/mm3 Gordon # (Auto) (0.30-0.82) K/mm3 Eos # (Auto) (0.04-0.54) K/mm3 Baso # (Auto) (0.01-0.08) K/mm3 Manual Slide Review PT (9.7-12.0) SECONDS INR APTT (21.7-31.4) SECONDS Puncture Site ABG pH (7.35-7.45) ABG pCO2 (35.0-45.0) mmHg ABG pO2 (80.0-100.0) mmHg ABG HCO3 (22.0-26.0) meq/L ABG O2 Saturation (96.0-97.0) % ABG Base Excess (-2-2.0) Yonis Test A-a Gradient mmHg O2 Delivery Device Oxygen Flow Rate FiO2 (21.00-100.00) % Tidal Volume cc PEEP cmH20 Sodium (136-145) mEq/L Potassium (3.5-5.1) mEq/L Chloride (98-107) mEq/L Carbon Dioxide (21-32) mEq/L Anion Gap (5-15) BUN (7-18) mg/dL Creatinine (0.7-1.3) mg/dL Est Cr Clr Drug Dosing Estimated GFR (MDRD) (>60) mL/min BUN/Creatinine Ratio (14-18) Glucose (74-106) mg/dL Lactic Acid 5.2 H* (0.4-2.0) mmol/L Calcium (8.5-10.1) mg/dL Magnesium (1.8-2.4) mg/dl Total Bilirubin (0.2-1.0) mg/dL AST (15-37) U/L ALT (16-63) U/L Alkaline Phosphatase (46-116) U/L CK-MB (CK-2) (0-3.6) ng/ml Troponin I (0.00-0.056) ng/mL C-Reactive Protein (<1.0) mg/dL NT-Pro-B Natriuret Pep (0-125) pg/mL Total Protein (6.4-8.2) g/dl Albumin (3.4-5.0) g/dl Globulin gm/dL Albumin/Globulin Ratio (1-2) TSH 3rd Generation 2.150 (0.358-3.74) uIU/mL Urine Color Yellow (Yellow) Urine Appearance Clear (Clear) Urine pH 6.5 (5.0-8.0) Ur Specific [place] > or = 1.030 (1.005-1.030) Urine Protein 3+ H (Negative) Urine Glucose (UA) Trace H (Negative) Urine Ketones Negative (Negative) Urine Occult Blood 2+ H (Negative) Urine Nitrite Negative (Negative) Urine Bilirubin Negative (Negative) Urine Urobilinogen 0.2 (0.2-1.0) Ur Leukocyte Esterase Negative (Negative) Urine RBC 0-5 (0-5) /hpf Urine WBC 0-5 (0-5) /hpf Ur Squamous Epith Cells Not seen (0-5) /hpf Urine Bacteria Few (FEW) /hpf Urine Mucus Few (FEW) /hpf Urine Opiates Screen (PKEAQU=549) Ur Buprenorphine Scrn (CUTOFF=10) Ur Oxycodone Screen (YKU2JQ=019) Urine Methadone Screen (LSD6WX=194) Ur Propoxyphene Screen (NGSPDW=567) Ur Barbiturates Screen (ZXSMUE=220) Ur Tricyclics Screen (VARZON=212) Ur Phencyclidine Scrn (CUTOFF=25) Ur Amphetamine Screen (TBHMYH=009) U Methamphetamines Scrn (MDXUGD=960) U Benzodiazepines Scrn (CKKMEL=659) U Cocaine Metab Screen (TDKIJP=971) U Marijuana (THC) Screen (CUTOFF=50) SARS-CoV-2 RNA (LINDSEY) (NEGATIVE) 11/12/20 11/12/20 Range/Units 16:57 17:30 WBC (4.23-9.07) K/mm3 RBC (4.63-6.08) M/mm3 Hgb (13.7-17.5) gm/dl Hct (40.1-51.0) % MCV (79.0-92.2) fl MCH (25.7-32.2) pg MCHC (32.2-35.5) g/dl RDW Std Deviation (35.1-43.9) fL Plt Count (163-337) K/mm3 MPV (9.4-12.3) fl Neut % (Auto) (34.0-67.9) % Lymph % (Auto) (21.8-53.1) % Gordon % (Auto) (5.3-12.2) % Eos % (Auto) (0.8-7.0) Baso % (Auto) (0.1-1.2) % Neut # (Auto) (1.78-5.38) K/mm3 Lymph # (Auto) (1.32-3.57) K/mm3 Gordon # (Auto) (0.30-0.82) K/mm3 Eos # (Auto) (0.04-0.54) K/mm3 Baso # (Auto) (0.01-0.08) K/mm3 Manual Slide Review PT (9.7-12.0) SECONDS INR APTT (21.7-31.4) SECONDS Puncture Site Rt radial ABG pH 6.96 L* (7.35-7.45) ABG pCO2 131.8 H* (35.0-45.0) mmHg ABG pO2 90.0 (80.0-100.0) mmHg ABG HCO3 28.1 H (22.0-26.0) meq/L ABG O2 Saturation 88.0 L (96.0-97.0) % ABG Base Excess -10.1 L (-2-2.0) Yonis Test A-a Gradient 458 mmHg O2 Delivery Device Ventilator Oxygen Flow Rate 0.0 FiO2 100.00 (21.00-100.00) % Tidal Volume 400.0 cc PEEP 10.0 cmH20 Sodium (136-145) mEq/L Potassium (3.5-5.1) mEq/L Chloride (98-107) mEq/L Carbon Dioxide (21-32) mEq/L Anion Gap (5-15) BUN (7-18) mg/dL Creatinine (0.7-1.3) mg/dL Est Cr Clr Drug Dosing Estimated GFR (MDRD) (>60) mL/min BUN/Creatinine Ratio (14-18) Glucose (74-106) mg/dL Lactic Acid (0.4-2.0) mmol/L Calcium (8.5-10.1) mg/dL Magnesium (1.8-2.4) mg/dl Total Bilirubin (0.2-1.0) mg/dL AST (15-37) U/L ALT (16-63) U/L Alkaline Phosphatase (46-116) U/L CK-MB (CK-2) (0-3.6) ng/ml Troponin I (0.00-0.056) ng/mL C-Reactive Protein (<1.0) mg/dL NT-Pro-B Natriuret Pep (0-125) pg/mL Total Protein (6.4-8.2) g/dl Albumin (3.4-5.0) g/dl Globulin gm/dL Albumin/Globulin Ratio (1-2) TSH 3rd Generation (0.358-3.74) uIU/mL Urine Color (Yellow) Urine Appearance (Clear) Urine pH (5.0-8.0) Ur Specific [place] (1.005-1.030) Urine Protein (Negative) Urine Glucose (UA) (Negative) Urine Ketones (Negative) Urine Occult Blood (Negative) Urine Nitrite (Negative) Urine Bilirubin (Negative) Urine Urobilinogen (0.2-1.0) Ur Leukocyte Esterase (Negative) Urine RBC (0-5) /hpf Urine WBC (0-5) /hpf Ur Squamous Epith Cells (0-5) /hpf Urine Bacteria (FEW) /hpf Urine Mucus (FEW) /hpf Urine Opiates Screen Negative (DOMWIE=281) Ur Buprenorphine Scrn Negative (CUTOFF=10) Ur Oxycodone Screen Negative (XCK6EA=876) Urine Methadone Screen Negative (ZGR0TC=718) Ur Propoxyphene Screen Negative (BDFMXG=485) Ur Barbiturates Screen Negative (NTBIIE=549) Ur Tricyclics Screen Negative (AYVPNQ=171) Ur Phencyclidine Scrn Negative (CUTOFF=25) Ur Amphetamine Screen Negative (OVOGGK=122) U Methamphetamines Scrn Negative (OEBTWU=098) U Benzodiazepines Scrn Negative (AOUIUF=235) U Cocaine Metab Screen Negative (JCVYZR=482) U Marijuana (THC) Screen Negative (CUTOFF=50) SARS-CoV-2 RNA (LINDSEY) (NEGATIVE) Meds: Medications Discontinued Medications Generic Name Dose Route Start Last Admin Trade Name Freq PRN Reason Stop Dose Admin Albuterol 10 mg 11/12/20 16:22 11/12/20 16:38 Proventil Neb Soln NEB 11/12/20 16:23 Not Given ONETIME ONE Furosemide 60 mg 11/12/20 16:16 11/12/20 16:29 Lasix IVPUSH 11/12/20 16:17 60 mg NOW ONE Administration Furosemide Confirm 11/12/20 16:59 Lasix Administered 11/12/20 17:00 Dose 100 mg .ROUTE .STK-MED ONE Nitroglycerin/Dextrose 25 mg in 250 mls @ 9 mls/hr 11/12/20 16:45 11/12/20 16:37 Nitroglycerin 25 Mg/D5w 250 Ml IV 15 mcg/min TITRATE CLAUDE 9 mls/hr Administration 15 MCG/MIN Nitroglycerin/Dextrose Confirm 11/12/20 16:34 11/12/20 16:38 Nitroglycerin 25 Mg/D5w 250 Ml Administered 11/12/20 16:35 Not Given Dose 25 mg in 250 mls @ as directed .ROUTE .STK-MED ONE Propofol 100 mls @ 0.762 mls/hr 11/12/20 17:30 11/12/20 18:02 Diprivan 100 Ml IV 5 mcg/kg/min TITRATE CLAUDE 3.81 mls/hr Titration Protocol 1 MCG/KG/MIN Nicardipine HCl 25 mg/ Sodium 260 mls @ 52 mls/hr 11/12/20 18:00 11/12/20 18:22 Chloride IV 5 mg/hr TITRATE CLAUDE 52 mls/hr Administration 5 MG/HR Sodium Chloride Confirm 11/12/20 18:01 Normal Saline (Advbag) Administered 11/12/20 18:02 Dose 250 mls @ as directed .ROUTE .STK-MED ONE Labetalol HCl Confirm 11/12/20 17:51 Normodyne Administered 11/12/20 17:52 Dose 100 mg .ROUTE .STK-MED ONE Labetalol HCl 20 mg 11/12/20 17:52 11/12/20 18:01 Normodyne IVPUSH 11/12/20 17:53 20 mg ONETIME ONE Administration Protocol Lidocaine HCl Confirm 11/12/20 16:31 11/12/20 16:37 Xylocaine 2% Jelly Administered 11/12/20 16:32 10 ml Dose Administration 10 ml .ROUTE .STK-MED ONE Nicardipine HCl Confirm 11/12/20 17:59 Nicardipine Hcl Administered 11/12/20 18:00 Dose 25 mg .ROUTE .STK-MED ONE Sodium Chloride 10 ml 11/12/20 16:17 11/12/20 16:37 Saline Flush FLUSH 10 ml ASDIRECTED PRN Administration Keep Vein Open Vecuronium [place] 13 mg 11/12/20 17:30 11/12/20 17:30 Vecuronium IVPUSH 11/12/20 17:31 13 mg ONETIME ONE Administration Vecuronium [place] Confirm 11/12/20 18:21 Vecuronium Administered 11/12/20 18:22 Dose 10 mg .ROUTE .[facility] ONE - Radiology Interpretation Free Text/Narrative:: 50-year-old male presents to the ED in acute respiratory distress. He presents obtunded pallid in the face and central cyanosis with cool extremities. Paramedics were summoned to a local parking lot where the patient appeared to have collapsed outside of his vehicle. Apparently he was on his way to the drugstore to slate picker his medicines i.e. albuterol inhaler Lopressor etc. Patient is not able to verbally respond at the initial assessment due to severe respiratory distress. Pulse oximetry on his fingers which were very cool to touch suggested his old oximetry to be 80%. Oximeter placed on his earlobe which is warm and his sats were up to 99% on 15 L by nonrebreather. ABGs done initially revealed a pH of 7.06 with a PCO2 of 85.3. PO2 is 76 with O2 sats of 86%. The patient is in acute pulmonary edema with rales throughout all lung jaeger. Dependent edema lower extremities up to his knees. Citizen IV will be established he will be given Lasix 60 mg IV and once blood pressure is established to be elevated he will be placed on nitroglycerin drip. - Re-Assessments/Exams Free Text/Narrative Re-Assessment/Exam: 11/12/20 16:48 Chest x-ray done portably reveals severe cardiomegaly with diffuse vascular congestion or acute pulmonary edema as suspected clinically. Heart rate is improving. Down to 136 sinus tachycardia in the monitor. Pulse oximeter on his earlobe is measuring 100%. ECG is difficult to interpret due to the rapid rate. Appears that he has had a previous old anteroseptal myocardial infarction with poor R wave progression. ST segment is elevated in leads II, III and aVF on some leads only due to baseline wandering. Similarly ST segment appears initially elevated in lead I with Q-wave in aVL suggesting possible old circumflex or lateral wall myocardial infarction. Cannot determine if there is anything acute at this time. Will be for repeat ABGs at 1700 hrs. 11/12/20 17;15: Patient continues to exhibit respiratory failure and therefore was intubated with rapid sequence intubation using etomidate 40 mg IV with succinylcholine 140 mg IV and 4 mg of Versed IV. ET tube secured at 24 cm corner of the right lip. Initial vent settings will be FiO2 of 80%. Tidal volume of 450. PEEP of 10 rate of 22. 11/12/20 17:21 Labs reveal a markedly elevated white count at 19.23 with 75% neutrophils on the auto differential. Hemoglobin is 15.1 with hematocrit of 47.5. Platelet count is 300,000. PT is 11.9 with an INR of 1.11. PTT is 30.2. Initial ABGs revealed a pH of 7.06 and a PCO2 of 85.3 indicating respiratory failure. PO2 was 76 on 15 L by nonrebreather. Sodium 140 with potassium low at 3.1. Chloride is 101 with a bicarb of 25 anion gap is 17.1. BUN is 29 with a creatinine of 2.3 and a GFR of 31 i.e. stage IIIb renal insufficiency. Glucose elevated at 269 lactic acid elevated at 5.2. Calcium is 9.0 magnesium is 2.3 liver function normal. Alk phosphatase is elevated slightly at 129. CK-MB fraction elevated at 3.9 troponin I is 0.202. C-reactive protein 7.0 total protein 8.1 TSH is 2.15. COVID-19 screen is pending. 11/12/20 17:45: COVID-19 screen came back negative. Second ABG revealed worsening of his pH at 6.96. PCO2 was 131.8 with a PO2 of 90. Vent settings increased with FiO2 of 100%. Rate of 30 and tidal volume increased to 550 PEEP maintained at 10. This improved his O2 sats to 96% and PCO2 monitor revealed 42. Propofol drip started at 5 mcg/kg/min. This was in hopes of also decr easing his blood pressure. Paralyzed with vecuronium 17 mg IV. Portable chest x-ray reveals ET tube to be about 1 cm above the lexie. I could not visualize the nasogastric tube below the diaphragm as the diaphragm was cut off on the x- ray. It appears to be within the esophagus on chest x-ray. Blood pressure remains markedly elevated will be treated with labetalol 20 mg IV push. He continues to have a markedly elevated heart rate at 144/min. Ground ambulance should be available for transport shortly after 1800 hrs. Free Text/Narrative Re-Assessment/Exam: 11/12/20 17:53 Blood preasure is 219/137. This is even after propofol drip started at 1 mg/kg and paralysis with vecuronium 13 mg IV. He is also on a nitro drip at 15 mcg/min. His heart rate remains elevated at 144. He will be given labetalol 20 mg IV bolus and then will be started on a nicardipine drip at 5 mg/h. This will be titrated up as required. Second ABG done 15 minutes after intubation revealed a pH of 6.96 and a PCO2 of 131.8 PO2 of 90. Sats were 88%. Tidal volume increased to 550 from 400. PEEP of 10 maintained. FiO2 increased from 80 to 100%. Rate increased from 26/min to 30/min. Chest x-ray done portably as the ET tube to be approximate 1 cm above the lexie. NG tube appears to pass alongside the cardiac silhouette. Unfortunately the diaphragm was cut off and I could not visualize the nasogastric tube below the diaphragm. 11/12/20 17:58 Blood pressure has dropped to 134/91. Heart rate is 97. O2 sats 96% -ventilator settings are FiO2 100%. Tidal volume 550. Respiratory rate of 30 and PEEP of 10. PCO2 on the monitor was 42. 11/12/20 18:20 BNP returned markedly elevated at 16,736. C-reactive protein is also elevated at 7.0. TSH was normal at 2.15. Urinalysis obtained by catheter revealed 3+ proteinuria 2+ occult blood negative leukocyte esterase and no signs of an infection. Urine drug screen proved to be completely negative and COVID- 19 screen proved to be negative. Patient has been accepted by [facility] in [place] per Dr. Gambino sign fabricator. Patient will be a direct admission to the intensive care unit. Ambulance is here at this time and able to load the patient. We may be underestimating his where his weight. I estimated at 280 to 300 pounds however he may be heavier than this. Looking back at notes from December of this year --patient weighed 143.7 kg which would be 317 pounds. 11/12/20 19:05: Blood Pressure at the time of discharge was 159/103. Patient will be started on nicardipine drip at 5 mg/h and titrated upwards as needed to achieve a blood pressure of 150-1 60 systolic and a diastolic of 90-100. O2 sats remained at 96% with PCO2 on monitor of 40. Departure - Departure Time of Disposition: 19:10 Disposition: DC/Tfer to [facility] 02 Condition: Critical Clinical Impression: Acute cardiac pulmonary edema, Malignant hypertension, Hypertensive heart disease Acute respiratory failure Qualifiers: Respiratory failure complication: hypoxia and hypercapnia Qualified Code(s): J96.01 - Acute respiratory failure with hypoxia; J96.02 - Acute respiratory failure with hypercapnia Cardiomyopathy Qualifiers: Cardiomyopathy type: unspecified Qualified Code(s): I42.9 - Cardiomyopathy, unspecified Heart failure Qualifiers: Heart failure type: unspecified Heart failure chronicity: unspecified Qualified Code(s): I50.9 - Heart failure, unspecified - Discharge Information *PRESCRIPTION DRUG MONITORING PROGRAM REVIEWED*: Not Applicable *COPY OF PRESCRIPTION DRUG MONITORING REPORT IN PATIENT ARMAND: Not Applicable Referrals: Kenyatta Ritter NP [Primary Care Provider] - Forms: ED Department Discharge Additional Instructions: Patient was transferred to [facility] under the care of Dr. Gambino sign fabricator. Patient transported by ground ambulance due to lack of availability of flight team. Critical Care Note - Critical Care Note Total Time (mins): 150 Comments: Acute respiratory failure precipitated by acute pulmonary edema precipitated by malignant hypertension. Sepsis Event Note (ED) - Focused Exam Vital Signs: Vital Signs Temp Pulse Resp BP Pulse Ox 11/12/20 18:21 105 H 159/107 H 99 11/12/20 18:02 97 16 140/85 96 11/12/20 17:55 144 H 219/137 H 11/12/20 17:44 36.8 C 144 H 20 205/131 H 97 11/12/20 16:46 36.8 C 137 H 32 H 256/161 H 99 11/12/20 16:21 36.4 C 148 H 36 H 264/174 H 54 L - My Orders Last 24 Hours: My Active Orders 11/12/20 16:18 Peripheral IV Insertion Adult [OM.PC] Stat 11/12/20 16:45 Insert Odell Catheter [Insert Urinary Catheter] [OM.PC] Q24H 12/28/20 17:19 Desired Level of Sedation (RASS) [AST] Click to Edit - Assessment/Plan Last 24 Hours: My Active Orders 11/12/20 16:18 Peripheral IV Insertion Adult [OM.PC] Stat 11/12/20 16:45 Insert Odell Catheter [Insert Urinary Catheter] [OM.PC] Q24H 11/12/20 17:19 Desired Level of Sedation (RASS) [AST] Click to Edit
[2020-11-12] MEDS: Albuterol 0.083% 2.5 MG/3 ML Neb Soln NEB ONE ×2 (16:29→16:38)
[2020-11-12] MEDS ORDERED: Lidocaine 2% Jelly 10 ML Urojet ONE (16:31)
[2020-11-12] MEDS ORDERED: Nitroglycerin/D5W 25 MG/250 ML BOTTLE ONE (16:34)
[2020-11-12] MEDS ORDERED: Nitroglycerin/D5W 25 MG/250 ML BOTTLE IV SCH (16:45)
--- NOTE | 2020-11-12 16:47 | CR ---
Chest: Semi-upright view of the chest was obtained. Comparison: Prior chest x-ray of 12/20/19. Findings: Heart is enlarged. Diffuse pulmonary vascular congestion is seen. Bony structures are grossly intact. Impression: 1. Prominent CHF. Diagnostic code #3
[2020-11-12] MEDS ORDERED: Furosemide 100 MG/10 ML SDV ONE (16:59)
[2020-11-12] MEDS ORDERED: Midazolam 1 MG/ML 5 ML SDV ONE (17:00)
[2020-11-12] MEDS ORDERED: Succinylcholine 200 MG/10 ML MDV ONE (17:00)
[2020-11-12] MEDS ORDERED: Etomidate 2 MG/ML 20 ML SDV IVPUSH ONE (17:00)
[2020-11-12] MEDS ORDERED: propofoL 100 ML IV SCH (17:30)
[2020-11-12] MEDS ORDERED: Labetalol 100 MG/20 ML MDV ONE (17:51)
[2020-11-12] MEDS ORDERED: Labetalol 100 MG/20 ML MDV IVPUSH ONE (17:52)
--- NOTE | 2020-11-12 18:00 | CR ---
Chest: Portable supine view of the upper chest were obtained. Comparison: Prior chest x-ray performed earlier on the same day (4:07 PM). Endotracheal tube is seen lying slightly below the inferior clavicles and approximately 3.9 cm above the lexie. There appears to be an endotracheal tube which courses off the inferior edge of the film. Pulmonary vessels are diffusely congested with alveolar edema. Heart is enlarged. Impression: 1. Findings compatible with continuing CHF with areas of pulmonary edema being seen. 2. Satisfactory position of endotracheal tube. 3. Questionable nasogastric tube, please correlate. Diagnostic code #3
[2020-11-12] MEDS ORDERED: Sodium Chloride 0.9% 250 ML ONE (18:01)
[2020-11-12] MEDS: niCARdipine HCl 25 MG in Sodium Chloride 0.9% 250 ML IV SCH ×2 (18:18→18:22)
[2020-11-12 18:21] VITALS: BP 159/107; PULSE 105
== END 2020-11-12 19:00 ==
LOC: JD.ED 16:10
DX: J96.02 Acute respiratory failure with hypercapnia (principal); I11.0 Hypertensive heart disease with heart failure; I50.9 Heart failure, unspecified; I42.9 Cardiomyopathy, unspecified; J45.909 Unspecified asthma, uncomplicated; J81.1 Chronic pulmonary edema; G62.9 Polyneuropathy, unspecified; E66.9 Obesity, unspecified; Z88.5 Allergy status to narcotic agent; Z91.048 Other nonmedicinal substance allergy status; Z79.899 Other long term (current) drug therapy; Z20.828 Contact with and (suspected) exposure to other viral communicable diseases
CPT/HCPCS: 31500; 36415; 36600; 51702; 71045; 80053; 80306; 81001; 82553; 82803; 83605; 83735; 83880; 84443; 84484; 85025; 85610; 85730; 86140; 87635; 93005; 96365; 96366; 96368; 96375; 99291; 99292; J0330; J1940; J2250; J2704; J3490; J7050; 93010; 99285; U0002